=== PATIENT | female | born 1970 | race Caucasian/White ===

== ENCOUNTER 2018-03-25 01:00 | Emergency (ER) | payer SELFPAY ==
[~2018-03-25] VITALS: Ht 170.2 cm; Wt 72.7 kg
[2018-03-25 01:05] VITALS: Ht 170.2 cm; Wt 72.7 kg
[2018-03-25] MEDS ORDERED: ATARAX 25 MG TA25 MG (01:07)
[2018-03-25] MEDS ORDERED: XANAX0.25 MG (01:08)
[2018-03-25] MEDS ORDERED: PEPCID40 MG (01:08)
[2018-03-25] MEDS ORDERED: AUGMENTIN 875-11 TAB PO (02:19)
[2018-03-25] MEDS ORDERED: VYVANSE60 MG PO (03:11)
[2018-03-25] MEDS ORDERED: MELATONIN10 M1 PO (03:11)
[2018-03-25] MEDS ORDERED: RELPAX20 MG PO (03:12)
[2018-03-25 03:47] VITALS: BP 121/69
== END 2018-03-25 03:47 | disposition home or self-care (01) ==
LOC: D.ER 01:00
DX: J32.1 Chronic frontal sinusitis (principal); R51 Headache; F17.200 Nicotine dependence, unspecified, uncomplicated